=== PATIENT | female | born 1965 | race Caucasian/White ===

== ENCOUNTER 2017-06-22 08:04 | Emergency (ER) | payer OTHER ==
[~2017-06-22] VITALS: Ht 162.6 cm; Wt 90.2 kg
[~2017-06-22 08:04] MED LIST: HYDR-3498 PO; HYDR25TA6 PO; RANI-347 PO
[2017-06-22 08:09] VITALS: Ht 162.6 cm; Wt 90.2 kg
[2017-06-22] MEDS ORDERED: BUTA1CAP38 PO (08:45)
--- NOTE | 2017-06-22 08:50 | ERD ---
ER Documentation Chief Complaint Chief Complaint headache and abdominal pain x 1 week HPI 51-year-old female presents with multiple complaints. This 51-year-old female presents with bitemporal and frontal headache intermittently for the last week. She has a history of headaches usually takes Fioricet but recently lost her primary care doctor. Patient has a history of gastric bypass, anemia and hiatal hernia as well. She has a new doctor appointment pending. She has a fevers, vomiting, visual changes, weakness, bowel or bladder incontinence. She is mild chronic epigastric pain. She denies any lower abdominal pain, and significant new symptoms. She is primarily requesting a refill on her Fioricet. ROS All systems reviewed and are negative except as per history of present illness. Medications Home Meds Active Scripts Sshcyjosyx-Wxiuwvojqnmxt-Ohvpdcuw* (Fioricet*) 50-300-40 Mg Capsule, 1 CAP PO Q4H Y for HEADACHE, #20 CAP Prov:DARIN MONTE MD 06/22/17 Reported Medications Hydrocodone Bit-Acetaminophen* (Diana*) 1 Tab Tab, 1 TAB PO PRN 03/20/13 Ranitidine Hcl* (Ranitidine Hcl*) 75 Mg Tablet, 75 MG PO DAILY 03/20/13 Hydrochlorothiazide* (Hydrochlorothiazide*) 25 Mg Tab, 25 MG PO DAILY 03/20/13 Allergies Allergies: Coded Allergies: No Known Allergy (Unverified , 05/26/13) PMhx/Soc History of Surgery: Yes (GASTRIC BYPASS '11, MCKENZIE '12, CSECTIONS '02) Anesthesia Reaction: No Hx Neurological Disorder: No Hx Respiratory Disorders: No Hx Cardiac Disorders: Yes (HTN) Hx Psychiatric Problems: No Hx Miscellaneous Medical Probl: Yes (chronic back pain) Hx Alcohol Use: No Hx Substance Use: No Hx Tobacco Use: No Physical Exam Vitals Vital Signs Date Time Temp Pulse Resp B/P Pulse Ox O2 Delivery O2 Flow Rate FiO2 06/22/17 08:09 99.2 97 20 138/81 98 Physical Exam Const: [] Alert, nql-wwk-ovudwfekh, pleasant. Head: Atraumatic. Reproducible bitemporal headache. Eyes: Normal Conjunctiva ENT: Normal External Ears, Nose and Mouth. Neck: Full range of motion..~ No meningismus. Resp: Clear to auscultation bilaterally Cardio: Regular rate and rhythm, no murmurs Abd: Soft, normal epigastric tenderness. No Hall sign and no tenderness at McBurney's point no rebound. R, non distended. Normal bowel sounds Skin: No petechiae or rashes Back: No midline or flank tenderness Ext: No cyanosis, or edema Neur: Awake and alert Psych: Normal Mood and Affect Procedures/MDM Patient presents with multiple complaints, primarily request for refill on her Fioricet, without any signs or symptoms to suggest emergent causes of headache. She is taking her other regular medication which include hydrochlorothiazide, proton pump inhibitor and iron. She has primary care appointment pending and should follow up with these appointments. She should return for fevers, weakness, shortness breath, dizziness, chest pain, new worsening symptoms with primary care doctor as directed. The patient was stable with no new complaints during the ER course. Clinically, there is no current evidence to suggest meningitis, sepsis, acute abdomen, pneumonia, acute coronary syndrome, pulmonary embolism, or any other emergent condition appearing to require further evaluation or hospitalization. The patient should certainly return for any new or worsening symptoms per the aftercare instructions. They should otherwise follow-up with her primary care doctor for reevaluation this week. Departure Diagnosis: Primary Impression: Headache Headache type: unspecified Headache chronicity pattern: unspecified pattern Intractability: not intractable Qualified Code: R51 - Nonintractable headache, unspecified chronicity pattern, unspecified headache type Condition: Stable Patient Instructions: Headache, Unspecified Referrals: [facility] YOU HAVE RECEIVED A MEDICAL SCREENING EXAM AND THE RESULTS INDICATE THAT YOU DO NOT HAVE A CONDITION THAT REQUIRES URGENT TREATMENT IN THE EMERGENCY DEPARTMENT. FURTHER EVALUATION AND TREATMENT OF YOUR CONDITION CAN WAIT UNTIL YOU ARE SEEN IN YOUR DOCTORS OFFICE WITHIN THE NEXT 1-2 DAYS. IT IS YOUR RESPONSIBILITY TO MAKE AN APPOINTMENT FOR FOLOW-UP CARE. IF YOU HAVE A PRIMARY DOCTOR --you should call your primary doctor and schedule an appointment IF YOU DO NOT HAVE A PRIMARY DOCTOR YOU CAN CALL OUR PHYSICIAN REFERRAL HOTLINE AT IF YOU CAN NOT AFFORD TO SEE A PHYSICIAN YOU CAN CHOSE FROM THE FOLLOWING [facility] [address] [facility]. [facility] [address] [facility]. [facility] [address] [facility] [address] [facility] [address] [facility]. [facility] [address] Additional Instructions: See primary doctor for primary care and further evaluation treatment. Recheck otherwise for new or worsening symptoms-chest pain, shortness of breath, weakness, new symptoms. DARIN MONTE MD Jun 22, 2017 08:50
== END 2017-06-22 09:00 | disposition home or self-care (01) ==
LOC: FTE 08:04
DX: R51 Headache (principal); I10 Essential (primary) hypertension
CPT/HCPCS: 99283

== ENCOUNTER 2017-06-24 13:58 | Emergency (ER) | payer OTHER ==
[~2017-06-24] VITALS: Ht 152.4 cm; Wt 90.9 kg
[~2017-06-24 13:58] MED LIST changes: +BUTA1CAP38 PO
[2017-06-24 14:00] VITALS: Ht 152.4 cm; Wt 90.9 kg
[2017-06-24] MEDS ORDERED: SOD CHLORIDE 0.9% 500 ML IV STA (14:32)
[2017-06-24 14:58] LABS: ABNORMAL IP MESSAGE 1; BASOPHILS % 0.5 % (0.0-2.0); EOSINOPHILS # 0.2 10^3/ul (0.0-0.5); EOSINOPHILS % 1.8 % (0.0-7.0); HEMATOCRIT 35.1 % (37.0-47.0); HEMOGLOBIN 10.7 g/dl (12.0-16.0); LYMPHOCYTES # 1.7 10^3/ul (0.8-2.9); LYMPHOCYTES % 19.6 % (15.0-51.0); MEAN CORPUSCULAR HEMOGLOBIN 25.7 pg (29.0-33.0); MEAN CORPUSCULAR HGB CONC 30.5 g/dl (32.0-37.0); MEAN CORPUSCULAR VOLUME 84.2 fl (82.0-101.0); MONOCYTE # 0.4 10^3/ul (0.3-0.9); MONOCYTES % 4.6 % (0.0-11.0); NEUTROPHIL # 6.3 10^3/ul (1.6-7.5); NEUTROPHILS % 73.3 % (39.0-77.0); PLATELET COUNT 229 10^3/UL (140-415); RED BLOOD COUNT 4.17 10^6/ul (4.20-5.40); RED CELL DISTRIBUTION WIDTH 23.2 % (11.5-14.5); WHITE BLOOD COUNT 8.5 10^3/ul (4.8-10.8)
[2017-06-24] MEDS ORDERED: DILTIAZEM 25 MG INJ IV ONE (15:00)
--- NOTE | 2017-06-24 15:10 | RADRPT ---
PROCEDURE: XR Chest. CLINICAL INDICATION: Chest pain. TECHNIQUE: AP Portable chest. COMPARISON: None available FINDINGS: Multiple EKG leads is superimposed over the chest wall. The soft tissues and bones are normal. No focal infiltrates, masses, or effusions are noted. The m ediastinum and heart are normal. No pneumothorax is present. IMPRESSION: 1. No radiographic evidence for acute cardiopulmonary disease RPTAT: HDC .Marla Cheng MD, MD Date Time Electronically viewed and signed by .Marla Cheng MD, on 06/24/2017 15:10 .C/
[2017-06-24 15:20] LABS: ADD UMIC NO; UR ASCORBIC ACID 40 mg/dL (NEGATIVE); UR BILIRUBIN (Dip) NEGATIVE (NEGATIVE); UR BLOOD (Dip) NEGATIVE (NEGATIVE); UR CLARITY SLIGHTLY CLOUDY (CLEAR); UR COLOR YELLOW (YELLOW); UR GLUCOSE (Dip) NEGATIVE (NEGATIVE); UR KETONES (Dip) TRACE mg/dL (NEGATIVE); UR LEUKOCYTE ESTERASE (Dip) NEGATIVE Leu/ul (NEGATIVE); UR NITRITE (Dip) NEGATIVE (NEGATIVE); UR RBC 0 /HPF (0-5); UR SPECIFIC GRAVITY (Dip) 1.027 (1.003-1.030); UR SQUAMOUS EPITHELIAL CELL FEW /HPF (FEW); UR TOTAL PROTEIN (Dip) NEGATIVE (NEGATIVE); UR UROBILINOGEN (Dip) 1+ mg/dL (NEGATIVE)
[2017-06-24 15:31] LABS: POSITIVE DIFF @See below
[2017-06-24 15:39] LABS: ALANINE AMINOTRANSFERASE 44 IU/L (13-69); ALBUMIN 3.8 g/dl (3.3-4.9); ALKALINE PHOSPHATASE 141 IU/L (42-121); ANION GAP 14 (8-16); ASPARTATE AMINO TRANSFERASE 19 IU/L (15-46); BLOOD UREA NITROGEN 11 mg/dl (7-20); CALCIUM 8.9 mg/dl (8.4-10.2); CARBON DIOXIDE 21 mmol/L (21-31); CHLORIDE 110 mmol/L (97-110); GLUCOSE 85 mg/dl (70-220); POTASSIUM 4.1 mmol/L (3.5-5.1); SODIUM 141 mmol/L (135-144); TOTAL PROTEIN 6.5 g/dl (6.1-8.1)
[2017-06-24 15:40] LABS: ETHANOL < 10.0 mg/dl
[2017-06-24 15:52] LABS: BARBITURATES Positive (NEGATIVE); BENZODIAZEPINES Negative (NEGATIVE); CANNABINOIDS Negative (NEGATIVE); COCAINE Negative (NEGATIVE); OPIATES Negative (NEGATIVE)
[2017-06-24 15:53] LABS: TROPONIN-I 0.029 ng/ml (0.00-0.12)
[2017-06-24 16:00] VITALS: BP 129/89; PULSE 76; RESP 16
[2017-06-24 16:23] LABS: T3 UPTAKE 30.7 % (23.5-40.5)
[2017-06-24] MEDS ORDERED: METO-448 PO (16:52)
[2017-06-24] MEDS ORDERED: APIX5TAB PO (16:52)
[2017-06-24] MEDS ORDERED: LISI1TAB6 PO (16:56)
[2017-06-24] MEDS ORDERED: OMEP40CA6 PO (16:57)
[2017-06-24] MEDS ORDERED: PANT40TA4 PO (16:57)
[2017-06-24] MEDS ORDERED: TRAZ100T15 PO (16:58)
[2017-06-24] MEDS ORDERED: CITA20TA6 PO (16:58)
--- NOTE | 2017-06-24 16:59 | ERD ---
ER Documentation Chief Complaint Chief Complaint ap,ramírez, palpitations x 1 week HPI This is a 51-year-old female presents with multiple complaints. Most prominent of which is palpitations for approximately 1 week. She also describes a gradual onset frontal headache that is similar to her migraine headaches. Mild epigastric abdominal discomfort. With no radiation of symptoms. The patient is found to be in atrial fibrillation, she states this is new for her. She denies any alcohol abuse. No chest pain no pleuritic pain no recent travel, immobilizations. She denies any surgeries. ROS All systems reviewed and are negative except as per history of present illness. Medications Home Meds Active Scripts Metoprolol Tartrate* (Lopressor*) 25 Mg Tab, 25 MG PO BID, #60 TAB Prov:SUSIE REYNA MD 06/24/17 Apixaban* (Eliquis*) 5 Mg Tablet, 5 MG PO BID for 30 Days, TAB Prov:SUSIE REYNA MD 06/24/17 Fwtwspnjim-Qqyqbivawqnwc-Uofioheq* (Fioricet*) 50-300-40 Mg Capsule, 1 CAP PO Q4H Y for HEADACHE, #20 CAP Prov:DARIN MONTE MD 06/22/17 Reported Medications Hydrocodone Bit-Acetaminophen* (Mereta*) 1 Tab Tab, 1 TAB PO PRN 03/20/13 Ranitidine Hcl* (Ranitidine Hcl*) 75 Mg Tablet, 75 MG PO DAILY 03/20/13 Hydrochlorothiazide* (Hydrochlorothiazide*) 25 Mg Tab, 25 MG PO DAILY 03/20/13 Allergies Allergies: Coded Allergies: No Known Allergy (Unverified , 06/24/17) PMhx/Soc History of Surgery: Yes (Gastric bypass, Cs x2, rectal sx, gall bladder sx) Anesthesia Reaction: No Hx Neurological Disorder: No Hx Respiratory Disorders: No Hx Cardiac Disorders: Yes (HTN, AFIB W/ RVR) Hx Psychiatric Problems: No Hx Miscellaneous Medical Probl: Yes (Hx HTN, Stomach prblemsm, Anemia) Hx Alcohol Use: No Hx Substance Use: No Hx Tobacco Use: Yes Smoking Status: Current every day smoker FmHx Family History: No diabetes Physical Exam Vitals Vital Signs Date Time Temp Pulse Resp B/P Pulse Ox O2 Delivery O2 Flow Rate FiO2 06/24/17 16:00 76 16 129/89 99 Room Air 06/24/17 14:00 98.7 86 18 131/78 99 Physical Exam General: Well developed, well nourished, no acute distress Head: Normocephalic, atraumatic. Eyes: Pupils equally reactive, EOM intact ENT: Moist mucous membranes Neck: Supple, no lymphadenopathy Respiratory: Lungs clear bilaterally, no distress Cardiovascular: Irregularly irregular, no murmurs, rubs, or gallops Abdominal: Soft, non-tender, non-distended, no peritoneal signs : Deferred MSK: No edema, no unilateral swelling, 5/5 strength Neurologic: Alert and oriented, moving all extremities, normal speech, no focal weakness, no cerebellar signs Skin: No rash Psych: Normal mood Result Diagram: 06/24/17 1450 06/24/17 1450 Results 24 hrs Laboratory Tests Test 06/24/17 14:30 06/24/17 14:50 Urine Test NEGATIVE White Blood Count 8.510^3/ul Red Blood Count 4.1710^6/ul Hemoglobin 10.7g/dl Hematocrit 35.1% Mean Corpuscular Volume 84.2fl Mean Corpuscular Hemoglobin 25.7pg Mean Corpuscular Hemoglobin Concent 30.5g/dl Red Cell Distribution Width 23.2% Platelet Count 17378^3/UL Mean Platelet Volume 10.0fl Neutrophils % 73.3% Lymphocytes % 19.6% Monocytes % 4.6% Eosinophils % 1.8% Basophils % 0.5% Nucleated Red Blood Cells % 0.0/100WBC Neutrophils # 6.310^3/ul Lymphocytes # 1.710^3/ul Monocytes # 0.410^3/ul Eosinophils # 0.210^3/ul Basophils # 0.010^3/ul Nucleated Red Blood Cells # 0.010^3/ul Urine Color YELLOW Urine Clarity SLIGHTLY CLOUDY Urine pH 5.0 Urine Specific [place] 1.027 Urine Ketones TRACEmg/dL Urine Nitrite NEGATIVEmg/dL Urine Bilirubin NEGATIVEmg/dL Urine Urobilinogen 1+mg/dL Urine Leukocyte Esterase NEGATIVELeu/ul Urine Microscopic RBC 0/HPF Urine Microscopic WBC 0/HPF Urine Squamous Epithelial Cells FEW/HPF Urine Calcium Oxalate Crystals FEW/HPF Urine Hemoglobin NEGATIVEmg/dL Urine Glucose NEGATIVEmg/dL Urine Total Protein NEGATIVEmg/dl Sodium Level 141mmol/L Potassium Level 4.1mmol/L Chloride Level 110mmol/L Carbon Dioxide Level 21mmol/L Anion Gap 14 Blood Urea Nitrogen 11mg/dl Creatinine 0.50mg/dl Glucose Level 85mg/dl Calcium Level 8.9mg/dl Total Bilirubin 0.0mg/dl Direct Bilirubin 0.00mg/dl Indirect Bilirubin 0.0mg/dl Aspartate Amino Transf (AST/SGOT) 19IU/L Alanine Aminotransferase (ALT/SGPT) 44IU/L Alkaline Phosphatase 141IU/L Troponin I 0.029ng/ml Total Protein 6.5g/dl Albumin 3.8g/dl Globulin 2.70g/dl Albumin/Globulin Ratio 1.40 Lipase 54U/L Free Thyroxine Index 1.32ug/ml Thyroxine (T4) 4.3ug/dl Triiodothyronine (T3) Uptake 30.7% Urine Opiates Screen Negative Urine Barbiturates Positive Urine Amphetamines Screen Negative Urine Benzodiazepines Screen Negative Urine Cocaine Screen Negative Urine Cannabinoids Negative Ethyl Alcohol Level < 10.0mg/dl Current Medications Medications (Trade) Dose Ordered Sig/Fernando Route PRN Reason Start Time Stop Time Status Last Admin Dose Admin Sodium Chloride (NS) 500 ml @ 500 mls/hr Q1H STAT IV 06/24/17 14:32 06/24/17 15:31 DC 06/24/17 15:10 Diltiazem HCl (Cardizem Iv) 20 mg ONCE ONCE IV 06/24/17 15:00 06/24/17 15:01 DC Acetaminophen/ Butalbital/ Caffeine (Fioricet) 1 tab ONCE ONCE PO 06/24/17 17:00 06/24/17 17:01 Apixaban (Eliquis) 5 mg ONCE ONCE PO 06/24/17 17:00 06/24/17 17:01 Procedures/MDM EKG, MONITORS, & DIAGNOSTIC IMAGING: EKG #1 EKG: I reviewed and interpreted a 12-lead EKG. Rhythm: A. fib with RVR Ectopy: None Intervals: No abnormalities ST segments: No elevations or depressions T waves: No contiguous inversions EKG #2 EKG: I reviewed and interpreted a 12-lead EKG. Rhythm: Normal sinus rhythm Ectopy: None Intervals: No abnormalities ST segments: No elevations or depressions T waves: No contiguous inversions Chest x-ray: I reviewed and interpreted a 1 view of the chest Mediastinum: No enlargement Cardiac silhouette: No cardiomegaly Airspace: Clear lung nguyen bilaterally without evidence of pneumothorax Bones: No evidence of fracture Laboratory testing: No electrolyte disturbance, negative troponin, normal thyroid MEDICAL DECISION MAKING: The patient presents with new onset atrial fibrillation with rapid ventricular response. This is likely secondary to hypertension, no signs or symptoms concerning for valvular disorder. No evidence of infection, pulmonary embolism. The patient has no chest pain. The patient's headache is unlikely related to serious etiology. The patient does not exhibit any clinical signs or symptoms, and has no risk factors to suggest headache etiology such as subarachnoid hemorrhage, acute vertebral or carotid dissection, intracranial mass, epidural, subdural hematoma, dural venous sinus thrombosis, giant cell arteritis, or pseudotumor cerebri. The patient has benign abdominal exam without signs or symptoms of acute intra- abdominal process. Consider gastritis. At this point no indication for CT imaging of the abdomen and pelvis ER COURSE: An IV was established and prior to the patient receiving 20 mg of IV Cardizem the patient converted to sinus rhythm spontaneously. The patient now has a diagnosis of paroxysmal atrial fibrillation with rapid ventricular response. The patient still carries a risk of stroke. The patient's CHADVASC score is 2 and recommendations are for anticoagulation. The patient has no contra indications to anticoagulation. I had a shared decision-making conversation with the patient and she is agreeable to anticoagulation. 5 mg of Eliquis provided in the emergency room and the patient will be started on 5 mg p.o. twice daily. The patient does take a blood pressure medication but I believe transition to metoprolol 25 mg p.o. twice daily would be reasonable. There is good evidence for excellent rate control the patient requires prompt outpatient cardiology follow-up. She states that she has a primary care physician appointment with beta-deonte. Within the next 4-5 days. I believe that outpatient management would be appropriate given the patient has no evidence of endorgan dysfunction and she is not rhythm controlled. The patient was given Fioricet for her headache. Headache is consistent with her chronic migraine headaches. I kept the patient and/or family informed of laboratory and diagnostic imaging results throughout the emergency room course. DISPOSITION PLAN: We discussed follow up with the patient's primary care doctor within 24 to 48 hours as needed. We also discussed return to the emergency room for worsening symptoms or worsening condition. Outpatient referral: [None required] Discharge Medications: Eliquis, metoprolol Departure Diagnosis: Primary Impression: Paroxysmal atrial fibrillation with RVR Additional Impression: Headache, chronic migraine without aura Status migrainosus presence: without status migrainosus Intractability: not intractable Qualified Code: G43.709 - Chronic migraine without aura without status migrainosus, not intractable Condition: Stable Patient Instructions: Atrial Fibrillation Referrals: JOSE COTTRELL Michael N. DO [facility] YOU HAVE RECEIVED A MEDICAL SCREENING EXAM AND THE RESULTS INDICATE THAT YOU DO NOT HAVE A CONDITION THAT REQUIRES URGENT TREATMENT IN THE EMERGENCY DEPARTMENT. FURTHER EVALUATION AND TREATMENT OF YOUR CONDITION CAN WAIT UNTIL YOU ARE SEEN IN YOUR DOCTORS OFFICE WITHIN THE NEXT 1-2 DAYS. IT IS YOUR RESPONSIBILITY TO MAKE AN APPOINTMENT FOR FOLOW-UP CARE. IF YOU HAVE A PRIMARY DOCTOR --you should call your primary doctor and schedule an appointment IF YOU DO NOT HAVE A PRIMARY DOCTOR YOU CAN CALL OUR PHYSICIAN REFERRAL HOTLINE AT IF YOU CAN NOT AFFORD TO SEE A PHYSICIAN YOU CAN CHOSE FROM THE FOLLOWING [facility] [address] [facility] [address]. [facility] [address] [facility] [address] [facility] [address] [facility] [address] [facility]. [facility] [address] [facility]. [facility] YOU HAVE RECEIVED A MEDICAL SCREENING EXAM AND THE RESULTS INDICATE THAT YOU DO NOT HAVE A CONDITION THAT REQUIRES URGENT TREATMENT IN THE EMERGENCY DEPARTMENT. FURTHER EVALUATION AND TREATMENT OF YOUR CONDITION CAN WAIT UNTIL YOU ARE SEEN IN YOUR DOCTORS OFFICE WITHIN THE NEXT 1-2 DAYS. IT IS YOUR RESPONSIBILITY TO MAKE AN APPOINTMENT FOR FOLOW-UP CARE. IF YOU HAVE A PRIMARY DOCTOR --you should call your primary doctor and schedule and appointment IF YOU DO NOT HAVE A PRIMARY DOCTOR YOU CAN CALL OUR PHYSICIAN REFERRAL HOTLINE AT . IF YOU CAN NOT AFFORD TO SEE A PHYSICIAN YOU CAN CHOSE FROM THE FOLLOWING [facility] INSTITUTIONS: [facility] [address] [place] [address] [facility] [address] [place] [address] [facility] [address] [place] [address] Additional Instructions: Change her blood pressure medication to metoprolol. I provided you with a prescription. Take the blood thinning medication but understand there are risks of bleeding. If you notice any bleeding either in her urine or stool or any other places then stop this medication and see your doctor. SUSIE REYNA MD Jun 24, 2017 16:59
[2017-06-24] MEDS ORDERED: ACET/BUTAL/CAFF TAB PO ONE (17:00)
[2017-06-24] MEDS ORDERED: APIXABAN 5 MG TABLET PO ONE (17:00)
[2017-06-24] MEDS ORDERED: FIORICET PO (17:01)
== END 2017-06-24 17:08 | disposition home or self-care (01) ==
LOC: E/R 13:58
DX: I48.0 Paroxysmal atrial fibrillation (principal); G43.709 Chronic migraine without aura, not intractable, without status migrainosus; I10 Essential (primary) hypertension; F17.210 Nicotine dependence, cigarettes, uncomplicated; R10.2 Pelvic and perineal pain
CPT/HCPCS: 36415; 71010; 80053; 80306; 80307; 81001; 83690; 84436; 84479; 84484; 84703; 85025; 93005; J7040; Z7502; Z7610; 81003

== ENCOUNTER 2017-06-25 07:57 | Emergency (ER) | payer OTHER ==
[~2017-06-25] VITALS: Ht 172.7 cm; Wt 91.0 kg
[~2017-06-25 07:57] MED LIST changes: +APIX5TAB PO; -BUTA1CAP38 PO; +CITA20TA6 PO; +FIORICET PO; -HYDR-3498 PO; -HYDR25TA6 PO; +LISI1TAB6 PO; +METO-448 PO; +OMEP40CA6 PO; +PANT40TA4 PO; -RANI-347 PO; +TRAZ100T15 PO
[2017-06-25 08:00] VITALS: Ht 172.7 cm; Wt 91.0 kg
--- NOTE | 2017-06-25 08:14 | ERD ---
ER Documentation Chief Complaint Chief Complaint seen here yesterday has palpitations and anxiety HPI 51-year-old female presents to the emergency department complaining of palpitations. Patient was evaluated yesterday for intermittent atrial fibrillation. Labs at that time were all normal and patient was low risk and discharged home. She states that since then, her anxiety is making her feel anxious with a sense of palpitations. She denies any chest pain or shortness of breath. She denies any lightheadedness. She has no fevers or chills or any other medical complaints other than her anxiety. From a psychiatric standpoint, she denies suicidal or homicidal thoughts. After review of her records, patient denies any further alcohol use at this time. ROS All systems reviewed and are negative except as per history of present illness. Medications Home Meds Active Scripts Acetamin/Butalbital/Caffeine* (Fioricet*) [id number] Tab, 1 TAB PO Q6H Y for PAIN, #30 TAB Prov:SUSIE REYNA MD 06/24/17 Metoprolol Tartrate* (Lopressor*) 25 Mg Tab, 25 MG PO BID, #60 TAB Prov:SUSIE REYNA MD 06/24/17 Apixaban* (Eliquis*) 5 Mg Tablet, 5 MG PO BID for 30 Days, TAB Prov:SUSIE REYNA MD 06/24/17 Reported Medications Trazodone Hcl* (Trazodone Hcl*) 100 Mg Tablet, 100 MG PO QHS, #30 TAB 06/24/17 Citalopram Hydrobromide* (Citalopram Hydrobromide*) 20 Mg Tablet, 20 MG PO DAILY , #30 TAB 06/24/17 Omeprazole* (Omeprazole*) 40 Mg Capsule.dr, 40 MG PO DAILY, #30 CAP 06/24/17 Pantoprazole* (Pantoprazole*) 40 Mg Tablet.dr, 40 MG PO AC BREAKFAST, TAB 06/24/17 Lisinopril/Hydrochlorothiazide (Lisinopril-Hctz 20-12.5 mg Tab) 1 Each Tablet, 1 EACH PO DAILY, TAB 06/24/17 Discontinued Reported Medications Hydrocodone Bit-Acetaminophen* (Ainsworth*) 1 Tab Tab, 1 TAB PO PRN 03/20/13 Ranitidine Hcl* (Ranitidine Hcl*) 75 Mg Tablet, 75 MG PO DAILY 03/20/13 Hydrochlorothiazide* (Hydrochlorothiazide*) 25 Mg Tab, 25 MG PO DAILY 03/20/13 Discontinued Scripts Pfcowarobh-Tlrsvnmddqltk-Iuyufqup* (Fioricet*) 50-300-40 Mg Capsule, 1 CAP PO Q4H Y for HEADACHE, #20 CAP Prov:DARIN MONTE MD 06/22/17 Allergies Allergies: Coded Allergies: No Known Allergy (Unverified , 06/24/17) PMhx/Soc History of Surgery: Yes (Gastric bypass, Cs x2, rectal sx, gall bladder sx) Anesthesia Reaction: No Hx Neurological Disorder: No Hx Respiratory Disorders: No Hx Cardiac Disorders: Yes (HTN, AFIB W/ RVR) Hx Psychiatric Problems: No Hx Miscellaneous Medical Probl: Yes (Hx HTN, Stomach prblemsm, Anemia) Hx Alcohol Use: No Hx Substance Use: No Hx Tobacco Use: Yes FmHx Noncontributory for chief complaint Physical Exam Vitals Vital Signs Date Time Temp Pulse Resp B/P Pulse Ox O2 Delivery O2 Flow Rate FiO2 06/25/17 08:00 98.0 85 18 150/79 100 Physical Exam GENERAL: The patient is well developed and appropriate for usual state of health in no apparent distress HEENT: Pupils equal, round, and reactive to light. EOMI. There is no scleral icterus. NECK: C-spine is soft and supple, there is no meningismus. There is no cervical lymphadenopathy. LUNGS: Clear to auscultation bilaterally. There are no rales, wheezes or rhonchi. HEART: Regular rate and rhythm, no murmurs, clicks, rubs or gallops. ABDOMEN: Soft, non-tender, non-distended. There are bowel sounds in all four quadrants. No rebound or guarding. EXTREMITIES: There is no peripheral cyanosis or edema. No focal swelling or erythema. NEURO: The patient moves all four extremities with 5/5 strength. Cranial nerves II - XII are intact. Normal gait. Alert and oriented SKIN: There is no apparent rash or petechiae. HEME/LYMPHATIC: There is no evidence of excessive bruising or lymphedema. PSYCHIATRIC: Patient has anxiety. She is easily calmed. She denies auditory or visual hallucinations. She denies suicidal or homicidal thoughts. Procedures/MDM Patient was taken to a room, seen and evaluated. Comfort measures were initiated. Diagnostic tests were ordered and reviewed. 3 LEAD RHYTHM STRIP: Normal sinus rhythm without ectopy EK lead EKG reviewed by myself: Normal Sinus Rhythm Normal [place] and intervals No ST elevation, depression, or T wave inversion Impression: Normal EKG CONSULTATION: Old records were reviewed including E[facility]E report MEDICAL DECISION MAKIN-year-old female with a history of an underlying anxiety disorder presents the emergency department with palpitations. At this time, patient is in a normal sinus rhythm with a normal nonischemic EKG. Patient has no evidence of cardiac arrhythmia at this time it appears to be having only anxiety type symptoms. From a psychiatric standpoint, she has no suicidal or homicidal thoughts at this time and appears able to negotiate the community. Departure Diagnosis: Primary Impression: Anxiety attack Condition: Stable Patient Instructions: Anxiety Reaction Additional Instructions: Take an aspirin every day. Return for any problems or concerns CRISTY MESSINA Jun 25, 2017 08:14
== END 2017-06-25 08:19 | disposition home or self-care (01) ==
LOC: E/R 07:57
DX: F41.9 Anxiety disorder, unspecified (principal); I10 Essential (primary) hypertension; R40.2142 Coma scale, eyes open, spontaneous, at arrival to emergency department; R40.2252 Coma scale, best verbal response, oriented, at arrival to emergency department; R40.2362 Coma scale, best motor response, obeys commands, at arrival to emergency department; Z87.891 Personal history of nicotine dependence
CPT/HCPCS: 93005; Z7502

== ENCOUNTER 2017-07-10 16:36 | Emergency (ER) | END 2017-07-10 17:05 | disposition home or self-care (01) ==

== ENCOUNTER 2017-07-18 14:01 | Emergency (ER) | END 2017-07-18 18:28 | disposition home or self-care (01) ==

== ENCOUNTER 2017-08-05 07:28 | Emergency (ER) | END 2017-08-05 08:27 | disposition home or self-care (01) ==

== ENCOUNTER 2017-08-13 09:37 | Emergency (ER) | END 2017-08-13 15:56 | disposition home or self-care (01) ==

== ENCOUNTER 2017-08-27 10:49 | Emergency (ER) | END 2017-08-27 17:25 | disposition home or self-care (01) ==

== ENCOUNTER 2017-12-03 08:57 | Emergency (ER) | END 2017-12-03 11:33 | disposition home or self-care (01) ==

== ENCOUNTER 2018-06-18 06:04 | Emergency (ER) | END 2018-06-18 08:32 | disposition home or self-care (01) ==